=== PATIENT | male | born 1990 | race Caucasian/White ===

== ENCOUNTER → 2019-05-07 | Outpatient (CLI) | payer OTHER | LOC: ECHO 08:30 | PROVIDERS: ATTEND Nurse Practitioner Family | DX: R00.2 Palpitations (principal) ==

== ENCOUNTER 2019-09-27 22:40 | Emergency (ER) | payer OTHER ==
[2019-09-27] MEDS ORDERED: HYDROmorphone HCL INJ 2 MG/ML VIAL IV ONE ×4 (22:44→23:41)
[2019-09-27] MEDS ORDERED: HYDROmorphone HCL INJ 2 MG/ML VIAL ONE (22:44)
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
[2019-09-27] MEDS ORDERED: SODIUM CHLORIDE 0.9% (FLUSH) 10 ML SYG IV PRN (22:45)
[2019-09-27] MEDS ORDERED: SODIUM CHLORIDE 0.9% 1000ML 1,000 ML IVS ONE ×2 (22:46→23:56)
[2019-09-27] MEDS ORDERED: TETANUS,DIPHTHERIA,PERTUSSIS 1 EA SYG IM ONE (23:28)
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
[2019-09-27] MEDS ORDERED: ONDANSETRON INJ 4 MG/2 ML VIAL IV ONE (23:56)
[2019-09-27] MEDS ORDERED: ONDANSETRON INJ 4 MG/2 ML VIAL ONE (23:56)
[2019-09-28] MEDS ORDERED: POVIDONE IODINE 10 % 15 ML UD TOP ONE (00:01)
[2019-09-28] MEDS ORDERED: ceFAZolin SODIUM 2 GM in SODIUM CHLORIDE 0.9% 100ML 100 ML IVPB ONE (00:02)
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
[2019-09-28] MEDS ORDERED: SODIUM CHLORIDE 0.9% 100ML 100 ML IVPB ONE (00:16)
[2019-09-28] MEDS ORDERED: ceFAZolin SODIUM 1 GM VIAL ONE (00:16)
[2019-09-28 00:28] VITALS: TEMP 99.3; O2SAT 97
[2019-09-28 00:30] VITALS: BP 116/71
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
== END 2019-09-28 00:49 | disposition short-term general hospital (02) ==
LOC: ER 22:40
DX: S62.022 Displaced fracture of middle third of navicular [scaphoid] bone of left wrist (principal); S63.065A Dislocation of metacarpal (bone), proximal end of left hand, initial encounter; T23.172A Burn of first degree of left wrist, initial encounter; W39.XXXA Discharge of firework, initial encounter; Y92.9 Unspecified place or not applicable
CPT/HCPCS: 73090; 73110; 73130; 80048; 85025; 90471; 90715; J0690; J1170; J2405; J7030; J7050